=== PATIENT | female | born 2000 | race Hispanic/Latino ===

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

== ENCOUNTER 2022-01-23 21:23 | Emergency (ER) | payer MEDICAID ==
[~2022-01-23] VITALS: Ht 160 cm; Wt 127.9 kg
[2022-01-23 21:25] VITALS: BP 129/70
[2022-01-23] MEDS ORDERED: KETOROLAC 60 MG VIAL (30MG/ML) IM ONE (22:00)
[2022-01-23] MEDS ORDERED: CYCLOBENZAPRINE HCL 10 MG TABLET PO ONE (22:00)
[2022-01-23 22:05] LABS: APPEARANCE,URINE CLEAR (CLEAR); BILIRUBIN,URINE NEGATIVE (NEGATIVE); COLOR,URINE YELLOW (YELLOW); GLUCOSE, URINE (UA) NEGATIVE (NEGATIVE); KETONES,URINE NEGATIVE (NEGATIVE); LEUKOCYTE ESTERASE ,URINE NEGATIVE (NEGATIVE); NITRATE,URINE NEGATIVE (NEGATIVE); OCCULT BLOOD,URINE MODERATE (NEGATIVE); PROTEIN,URINE NEGATIVE (NEGATIVE)
[2022-01-23 22:07] LABS: HCG,QUALITATIVE URINE NEGATIVE (NEGATIVE)
[2022-01-23 22:15] LABS: BACTERIA,URINE Few /HPF (None Seen); SQUAMOUS EPITHELIAL CELL,UR Few /HPF (0-2); WBC,URINE 0-1 /HPF (0-1)
[2022-01-23] MEDS ORDERED: CYCL10TA16 PO (22:35)
[2022-01-23] MEDS ORDERED: NAPR-1180 PO (22:35)
== END 2022-01-23 22:45 | disposition home or self-care (01) ==
LOC: EDH 21:23
DX: M54.50 Low back pain, unspecified (principal); E11.9 Type 2 diabetes mellitus without complications; E66.01 Morbid (severe) obesity due to excess calories; Z68.52 Body mass index [BMI] pediatric, 5th percentile to less than 85th percentile for age; Z79.1 Long term (current) use of non-steroidal anti-inflammatories (NSAID)
CPT/HCPCS: 99284; 81001; 81025; 72100; 96372; J1885

== ENCOUNTER 2022-05-19 09:18 | Emergency (ER) | payer MEDICAID ==
[~2022-05-19] VITALS: Ht 160 cm; Wt 117.9 kg
[~2022-05-19 09:18] MED LIST: CYCL10TA16 PO; NAPR-1180 PO
[2022-05-19 09:19] VITALS: BP 133/73
[2022-05-19] MEDS ORDERED: NIRM1TAB PO (10:49)
== END 2022-05-19 10:58 | disposition home or self-care (01) ==
LOC: EDH 09:18
DX: U07.1 COVID-19 (principal); E11.9 Type 2 diabetes mellitus without complications; E66.2 Morbid (severe) obesity with alveolar hypoventilation; Z68.42 Body mass index [BMI] 45.0-49.9, adult
CPT/HCPCS: 99283; 87635; 87880; 87804 ×2; C9803